=== PATIENT | female | born 1990 | race Caucasian/White ===

== ENCOUNTER → 2016-10-31 | Outpatient (CLI) | payer BC | LOC: LAB 15:53 | DX: Z32.01 Encounter for pregnancy test, result positive (principal) | CPT/HCPCS: 36415; 84144; 84702 ==

== ENCOUNTER → 2016-11-07 | Outpatient (CLI) | payer BC | LOC: RAD 17:03 | DX: N91.2 Amenorrhea, unspecified (principal); M25.571 Pain in right ankle and joints of right foot | CPT/HCPCS: 36415; 84702 ==

== ENCOUNTER → 2021-10-12 | Outpatient (CLI) | payer BC ==
[2021-10-12 18:48] LABS: HEMOGLOBIN 13.1 gm/dl (12.3-15.3); RED BLOOD COUNT 4.6 M/UL (4.00-5.10); WHITE BLOOD COUNT 7.1 K/UL (4.5-11.0)
[2021-10-12 19:09] LABS: BUN/CREATININE RATIO 12 (0-10)
== END ==
LOC: LAB 17:51
PROVIDERS: Nurse Practitioner
DX: Z01.812 Encounter for preprocedural laboratory examination (principal); Z01.89 Encounter for other specified special examinations; M79.604 Pain in right leg; L81.9 Disorder of pigmentation, unspecified; R20.2 Paresthesia of skin
CPT/HCPCS: 36415; 80053; 82607; 83036; 84443; 85027